=== PATIENT | male | born 1970 | race Caucasian/White ===

== ENCOUNTER 2025-06-02 00:59 | Emergency (ER) | payer MEDICAID ==
[2025-06-02 01:02] VITALS: TEMP 98.1
[2025-06-02 05:54] LABS: MEAN PLATELET VOLUME 8.0 FL (7.4-10.4); RED CELL DISTRIBUTION WIDTH 17.8 % (11.5-14.5)
--- NOTE | 2025-06-02 06:03 | Physician Documentation ---
History of Present Illness Chief Complaint: Abdominal Pain Stated Complaint: URINARY COMPLICATIONS Time Seen by MD: 06:03 Mode of Arrival: POV HPI 54-year-old male, history of left-sided nephrostomy tube, presenting with abdominal discomfort and change in his stool. He tells me that he has had several issues recently. He tells me there has been some pus coming around the insertion site of his nephrostomy tube. He was seen in clinic and told that it was not infected. He also reports some generalized abdominal discomfort, worse in the lower abdomen. No left flank pain. No fevers or chills. No dysuria or hematuria. No vomiting. He tells me that his stools were pruett colored today and so he was worried about bleeding internally. Medication Reconciliation Allergies: Coded Allergies: Sulfa (Sulfonamide Antibiotics) (Unverified Allergy, Unknown, 06/02/25) Scheduled Ciprofloxacin HCl (Ciprofloxacin HCl), 1 TAB PO Q12H Review of Systems Constitutional: Denies: fever Gastrointestinal: Reports: abdominal pain; Denies: vomiting, constipated Physical Exam Vital Signs: Temperature: 98.1, Source: Oral, Heart Rate: 84, Respiratory Rate: 16, BP: 167/88, Pulse Oximetry: 98 Physical Exam General: This is a pleasant middle-aged man who is resting comfortably in bed when I enter the room HEENT: Atraumatic, oropharynx appears dry Heart: Regular rate and rhythm, normal-appearing peripheral perfusion Lungs: normal work of breathing, normal oxygen saturation on room air Abdomen: Soft, nondistended, no significant tenderness to palpation in all quadrants, no rebound or guarding Back: The patient has a nephrostomy tube in the left flank, with some mild surrounding inflammatory changes and yellow serous fluid drainage on the bandage Neuro: Alert and oriented Psychiatric: Calm and cooperative with exam Progress Results/Orders Results/Orders Vital Signs 06/02/25 06/02/25 06/02/25 06/02/25 01:02 04:00 04:01 05:42 Temp 98.1 Pulse 85 90 84 Resp 16 16 16 16 B/P (MAP) 154/85 139/92 (108) 167/88 (114) Pulse Ox 99 97 98 Laboratory Tests Test 06/02/25 05:20 06/02/25 05:44 White Blood Count 5.7 Red Blood Count 4.26 L Hemoglobin 11.0 L Hematocrit 33.0 L Mean Corpuscular Volume 77.6 L Mean Corpuscular Hemoglobin 25.8 L Mean Corpuscular Hemoglobin Concent 33.3 Red Cell Distribution Width 17.8 H Platelet Count 181 Mean Platelet Volume 8.0 Neutrophils (%) (Auto) 77.0 H Lymphocytes (%) (Auto) 14.2 L Monocytes (%) (Auto) 5.2 Eosinophils (%) (Auto) 3.2 Basophils (%) (Auto) 0.4 Neutrophils # (Auto) 4.4 Lymphocytes # (Auto) 0.8 L Monocytes # (Auto) 0.3 Eosinophils # (Auto) 0.2 Basophils # (Auto) 0.0 CBC Comment Chemistry Comments Urine Comment EKG/XRAY/CT/US/VASC/MRI CT : Impression I personally interpreted the CT scan, and this shows nephrostomy tube in the appropriate location, inflammatory changes to the kidney Medical Decision Making Differential Dx:Considerations: Include: Appendicitis, Bowel obstruction, Cholelithasis, Constipation, GI hemorrhage, Hernia, Urinary obstruction, Urinary tract infection, Urolithiasis Additional Comments The patient presents with abdominal pain and change in stool. On exam he does have a nephrostomy tube with some inflammatory changes at the insertion site. His laboratory testing is grossly unremarkable including no significant acute kidney injury. Urinalysis is concerning for UTI. CT scan shows inflammatory changes consistent with pyelonephritis, but no abnormal positioning of the nephrostomy tube. On re-evaluation, the patient continued to be well-appearing. He will be given a dose of ceftriaxone and discharged with antibiotics for pyelonephritis. Return precautions given for signs of worsening infection. Departure Time of Disposition: 07:47 Disposition: 01 HOME / SELF CARE / HOMELESS Impression: Primary Impression: Pyelonephritis Condition: Improved Discharge Instructions: Pyelonephritis, Adult Referrals: NO PRIMARY CARE PROVIDER (PCP) Prescriptions Ciprofloxacin HCl (Ciprofloxacin HCl) 500 Mg Tablet 1 TAB PO Q12H for 10 Days, #20 TAB Prov: ELLIOT SONI MD 06/02/25 Education Educated: Patient Educated regarding: diagnosis, treatment, need for follow up Signature Scribe Signature: hien Attestation: ELLIOT Mccartney MD Jun 02, 2025 06:03
[2025-06-02 06:10] LABS: CREATININE 0.64 MG/DL (0.60-1.10); TOTAL CARBON DIOXIDE 25.9 MMOL/L (24-32); eGFR > 90 ML/MIN
[2025-06-02 06:11] LABS: LEUKOCYTE ESTERASE ,URINE MODERATE (Neg); NITRITES, URINE POSITIVE (Neg); OCCULT BLOOD,URINE LARGE (Neg)
[2025-06-02 06:15] LABS: UA COLLECTION TYPE NON-SPECIFIED
[2025-06-02 06:20] LABS: MUCUS STRANDS FEW /LPF (Neg); SQUAMOUS EPITHELIAL CELL,UR FEW /LPF (FEW); WBC CLUMPS,URINE MODERATE /HPF (NEGATIVE)
[2025-06-02 06:33] VITALS: BP 139/76; O2SAT 98
--- NOTE | 2025-06-02 07:26 | RADIOLOGY REPORT ---
Exam: CT CT ABDOMEN PELVIS History: ABD PAIN Comparison Study: None Technique: Multidetector spiral CT of the abdomen was performed from lung bases to pubic symphysis. Axial imaging was performed with intravenous contrast following the uneventful administration of 100 ml Omnipaque 300. Coronal and sagittal multiplanar reformats were obtained from the axial data set by the technologist. Radiation Dose : 1. Abdomen/Pelvis: CTDIvol 36.2 mGy, DLP 1998.4 mGy*cm. Findings: Lung Bases: Left basilar consolidation is noted. Visualized portions of the heart and pericardium are unremarkable. Liver: The liver is normal in size. Nodular contour. No focal lesions. Gallbladder and Biliary Tree: The gallbladder contains multiple stones. No intrahepatic or extrahepatic biliary ductal dilatation. Spleen: Enlarged measuring 20.2 cm. Pancreas: The pancreas enhances normally and there are no focal lesions. The main pancreatic duct is not dilated Adrenal Glands: Unremarkable Kidneys: There is a left percutaneous nephrostomy tube. There is air in the collecting system. No significant left hydronephrosis. There is left perinephric and periureteral fat stranding. The right kidney is unremarkable. No right ureteral or renal calculus. GI tract: The stomach is grossly normal in appearance. No evidence of small bowel wall thickening or abnormal dilatation to suggest bowel obstruction. The colon is unremarkable. The appendix is not visualized, however no inflammatory changes in the right lower quadrant to suggest acute appendicitis. Peritoneum/mesentery/retroperitoneum. No evidence of free intraperitoneal air. No ascites. Lymph nodes: Cluster of prominent retroperitoneal lymph nodes adjacent to the posterior fusion in the lower lumbar spine. Abdominal Wall: Unremarkable. Vasculature: Abdominal aorta and main branches are unremarkable. Normal vascular enhancement. Urinary Bladder: Grossly unremarkable for degree of distention. Pelvic Organs: Unremarkable Musculoskeletal: There is Posterior instrumented fusion at L2-S1 with bilateral rods and screws and interbody prostheses. There is cortical destruction in the L3, L4 and L5 vertebral bodies of indeterminate age. Multilevel spinal and neural foraminal stenosis is noted. Soft tissues: Body wall anasarca. There is a fat containing umbilical hernia. Bilateral fat containing inguinal hernias. Bilateral gynecomastia. IMPRESSION: 1. Left percutaneous nephrostomy tube in place. No significant left hydronephrosis. Left perinephric and periureteral fat stranding. Infection versus inflammation not excluded. 2. Cholelithiasis. 3. Splenomegaly. 4. Cirrhotic liver suspected. 5. Posterior instrumented fusion at L2-S1 with bilateral rods and screws and interbody prostheses. Cortical destruction in the L3, L4 and L5 vertebral bodies of indeterminate age. Correlation with any prior imaging of the spine is recommended. Depending on the clinical concern, MRI may be attempted although assessment will be limited because of the artifact from the hardware. 6. Left basilar consolidation suggesting pneumonia.
[2025-06-02] MEDS ORDERED: CefTRIAXone/D5W-Rocephin 1gm 50 ML IV ONE (07:30)
[2025-06-02] MEDS ORDERED: CIPR-452 PO (07:49)
[2025-06-02] MEDS: CefTRIAXone 1000mg IM Kit (w/lidocaine diluent) IM ONE (08:15)
[2025-06-02 08:17] VITALS: PULSE 90; RESP 18
== END 2025-06-02 08:20 | disposition home or self-care (01) ==
LOC: ER 01:01
DX: N12 Tubulo-interstitial nephritis, not specified as acute or chronic (principal); Z88.2 Allergy status to sulfonamides
CPT/HCPCS: 36415; 74176; 80053; 81001; 83690; 85025; 87077; 87088; 87186; 96372; 99285; J0696; A6212; A6402

== ENCOUNTER 2025-07-11 23:14 | Emergency (ER) | payer MEDICAID ==
[2025-07-11] MEDS ORDERED: NO HOME MEDS (23:23)
--- NOTE | 2025-07-12 00:07 | Physician Documentation ---
History of Present Illness ~ Chief Complaint: Leg Pain Stated Complaint: BILAT LEG SWELLING X 2 DAYS Time Seen by MD: 00:06 HPI Patient presents to the emergency rooms for concern of lower extremity swelling. No prior instances. Denies history of congestive heart failure. Patient does have a tube connecting his kidney to his bladder externally as he states that has ureter was ligated and this was the fix. He reports that he is supposed to have it reversed to sometime around now however [place] area trying to escape bad weather. He states that has tube was placed at [place] not too long ago. Tetanus witin 5 years: No Medication Reconciliation Allergies: Coded Allergies: Sulfa (Sulfonamide Antibiotics) (Unverified Allergy, Unknown, 07/11/25) Miscellaneous Medications Home Med List (No Home Medications), (Reported) Review of Systems ROS All review of systems negative except as per HPI Physical Exam Vital Signs: Temperature: 96.8, Source: Temporal, Respiratory Rate: 21 Physical Exam General: Patient is awake, alert, oriented x4 in no acute distress. Chronically ill-appearing Head: Normocephalic and atraumatic. Eyes: Conjunctival normal. EOMI. PERRL. ENT: Mucous membranes moist. Neck: Supple, trachea is midline. Chest: Clear to auscultation bilaterally without rales, rhonchi, or wheezes. There is no accessory muscle use or retractions. Cardiac: RRR without murmurs, gallops, or rubs. Extremities: Chronic stasis changes noted bilaterally. Some blistering noted on anterior shins bilaterally. No erythema or purulence. No drainage Progress Results/Orders Results/Orders Completed Orders - TAM ALDRIDGE MD Cephalexin Capsule (Keflex Capsule) (07/12/25 00:10) PBNP (07/12/25 00:16) Hs Troponin I W Calculations (07/12/25 00:16) CMP (07/12/25 00:16) Vital Signs 07/11/25 23:21 Temp 96.8 Resp 21 Laboratory Tests Test 07/12/25 01:01 CBC Comment Sodium Level 139 Potassium Level 4.2 Chloride Level 103 Carbon Dioxide Level 29.8 Anion Gap 6 L Blood Urea Nitrogen 19 H Creatinine 0.98 Estimated GFR/1.73 m2 80 BUN/Creatinine Ratio 19.4 Glucose Level 167 H Calcium Level 8.6 Total Bilirubin 0.3 Aspartate Amino Transf (AST/SGOT) 33 Alanine Aminotransferase (ALT/SGPT) 24 Alkaline Phosphatase 106 Troponin I High Sensitivity 8 Pro-B-Type Natriuretic Peptide 65 Total Protein 8.2 Albumin 3.1 L Globulin 5.1 H Albumin/Globulin Ratio 0.6 L Chemistry Comments Medical Decision Making Additional information obtaine: N/A Findings Patient presents to the emergency room with swelling to his bilateral lower extremities. Differentials include but are not limited to venous insufficiency, CHF exacerbation, heart failure, kidney failure therefore emergent labs ordered. Labs reassuring for no elevation of BUN with reassuring renal function and he had not believe patient is suffering from CHF or kidney injury causing his edema. Mild hypoalbuminemia however I do not believe this is cause for his sym ptoms. Symptoms likely secondary to venous insufficiency. I will put him on a small course of Lasix and we will wrap his legs with Raheem bandage with instructions to get compression stockings into elevate his legs. I have instructed him to go back to the town where he had his surgery for his kidneys as this needs to be done and that has inappropriate for him to be traveling around when he is due for this procedure. General Diff Dx:Considerations: Include: Abrasion, Contusion, Fracture, Hematoma, Laceration, Malunion, Neurovascular injury, Open fracture, Sprain, Ulcer, Other Knee Diff Dx:Considerations: Include: Abrasion, Arthritis, Contusion, DJD, Fracture-femur, Fracture-fibula, Fracture-patella, Fracture-tibia, Gout, Hematoma, Laceration, Meniscus injury, Neurovascular injury, Open fracture, Rheumatoid arthritis, Septic, Sprain, Sprain-MCL, Sprain-LCL, Sprain-ACL, Sprain-PCL, Other Ankle Diff Dx:Considerations: Include: Abrasion, Arthritis, Contusion, DJD, Fracture-metatarsal, Fracture-fibula, Fracture-tarsal, Fracture-tibia, Gout, Hematoma, Laceration, Malunion, Neurovascular injury, Nonunion, Open fracture, Osteomyelitis, Rheumatoid arthritis, Sprain, Septic, Ulcer, Other Foot Diff Dx:Considerations: Include: Abrasion, Arthritis, Cellulitis, Contusion, Dislocation, DJD, Fracture-metatarsal, Fracture-phalynx, Fracture- tarsal, Gout, Hematoma, Ingrown toenail, Laceration, Malunion, Neurovascular injury, Open fracture, Paronychia, Puncture, Rheumatoid, Sprain, Septic, Subungual hematoma, Ulcer, Other Toe Diff Dx:Considerations: Include: Abrasion, Cellulitis, Contusion, Dislocation, Felon, Fracture, Hematoma, Laceration, Neurovascular injury, Open fracture, Paronychia, Subungual hematoma, Other Departure Disposition: HOME / SELF CARE / HOMELESS Impression: Primary Impression: Dependent edema Condition: Stable Discharge Instructions: Peripheral Edema Additional Instructions: Your swelling that has likely secondary to something called vascular insufficiency. I will put you in his small course of water pills to try and draw off some of the fluids. This needs to be managed with salt restriction, leg elevation, compression stockings. There are doctors available that has specialize in his condition but she would need a referral from your primary care provider. I recommend returning to your town for not only primary care provider referral but also to manage your kidney tube for which you state needs to be managed. Referrals: NO PRIMARY CARE PROVIDER (PCP) Prescriptions Furosemide* (Lasix*) 20 Mg Tablet 1 TAB PO BID, #6 TAB Prov: TAM ALDRIDGE MD 07/12/25 Signature Scribe Signature: No scribe Attestation: The note accurately reflects work and decisions made by me.Tam Aldridge MD 07/12/25 02:28 TAM ALDRIDGE MD Jul 12, 2025 00:07
[2025-07-12 01:37] LABS: CREATININE 0.98 MG/DL (0.60-1.10); PRO BRAIN NATRIURETIC PEPTIDE 65 PG/ML (0-125); eGFR 80 ML/MIN
[2025-07-12 01:46] LABS: TOTAL CARBON DIOXIDE 29.8 MMOL/L (24-32)
[2025-07-12] MEDS ORDERED: FURO-150 PO (02:29)
[2025-07-12 02:56] VITALS: PULSE 88; RESP 16; TEMP 96.8; O2SAT 99
== END 2025-07-12 03:05 | disposition home or self-care (01) ==
LOC: ER 23:15
DX: R60.0 Localized edema (principal); Z88.2 Allergy status to sulfonamides
CPT/HCPCS: 36415; 80053; 83880; 84484; 99283; A6449